=== PATIENT | female | born 1995 | race Caucasian/White ===

== ENCOUNTER 2023-01-28 08:30 | Outpatient (CLI) | payer OTHER, SELFPAY | END 2023-01-28 08:31 | disposition home or self-care (01) | LOC: NFLDREF 01-29 22:24 | PROVIDERS: PCP Physician Assistant Medical; Referring Provider Physician Assistant Medical; Visit Provider Physician Assistant Medical | DX: Z00.00 Encounter for general adult medical examination without abnormal findings (principal); Z13.6 Encounter for screening for cardiovascular disorders; Z13.29 Encounter for screening for other suspected endocrine disorder | CPT/HCPCS: 80053; 80061; 83540; 84443 ==

== ENCOUNTER 2024-04-12 08:26 | Outpatient (CLI) | payer OTHER, SELFPAY | END 2024-04-12 08:27 | disposition home or self-care (01) | PROVIDERS: PCP Physician Assistant Medical; Visit Provider Physician Assistant Medical | DX: N92.6 Irregular menstruation, unspecified (principal); Z13.29 Encounter for screening for other suspected endocrine disorder | CPT/HCPCS: 84443; 86376 ==

== ENCOUNTER 2024-11-15 16:56 | Outpatient (CLI) | payer OTHER, SELFPAY | END 2024-11-15 16:57 | disposition home or self-care (01) | PROVIDERS: PCP Physician Assistant Medical; Visit Provider Physician Assistant Medical | DX: Z12.4 Encounter for screening for malignant neoplasm of cervix (principal); Z13.29 Encounter for screening for other suspected endocrine disorder | CPT/HCPCS: 84443; 88141; 88142 ==

== ENCOUNTER 2025-07-05 09:10 | Outpatient (CLI) | payer OTHER, SELFPAY | END 2025-07-05 09:11 | disposition home or self-care (01) | LOC: FRMREF 09:12 | PROVIDERS: PCP Physician Assistant Medical; Visit Provider Obstetrics & Gynecology | DX: Z31.9 Encounter for procreative management, unspecified (principal) | CPT/HCPCS: 84702 ==

== ENCOUNTER 2025-07-07 07:52 | Outpatient (CLI) | payer OTHER, SELFPAY | END 2025-07-07 07:53 | disposition home or self-care (01) | LOC: NFLDREF 07-09 23:00 | PROVIDERS: PCP Physician Assistant Medical; Referring Provider Physician Assistant Medical; Visit Provider Obstetrics & Gynecology | DX: O26.891 Other specified pregnancy related conditions, first trimester (principal); R10.9 Unspecified abdominal pain | CPT/HCPCS: 84702 ==

== ENCOUNTER 2025-07-12 07:36 | Outpatient (CLI) | payer OTHER, SELFPAY | END 2025-07-12 07:37 | disposition home or self-care (01) | LOC: NFLDREF 07-13 08:03 | PROVIDERS: PCP Physician Assistant Medical; Referring Provider Physician Assistant Medical; Visit Provider Obstetrics & Gynecology | DX: Z34.91 Encounter for supervision of normal pregnancy, unspecified, first trimester (principal) | CPT/HCPCS: 84702 ==